=== PATIENT | female | born 1960 | race Two or more races ===

== ENCOUNTER 2024-01-13 20:23 | Emergency (ER) | payer MEDICAID, SELFPAY ==
[2024-01-13 20:24] VITALS: BMI 25.7
[2024-01-13 20:48] VITALS: BP 161/91; PULSE 88; RESP 18; TEMP 37; O2SAT 96
--- NOTE | 2024-01-13 20:57 | PD.EDRME ---
Rapid Medical Screening Exam RME Arrival date/time: 01/13/24 20:23 63 year old female present to ED for c/o flank pain/frequency I have greeted and performed a focused initial assessment of this patient. A comprehensive ED assessment and evaluation of the patient, analysis of all test results, and completion of the medical decision making process will be conducted by additional ED providers. Chief Complaint: Back Pain/Injury Time Seen by Provider: 01/13/24 20:46 Vital signs: Vital Signs Temperature 98.6 F 01/13/24 20:48 Pulse Rate 88 01/13/24 20:48 Respiratory Rate 18 01/13/24 20:48 Blood Pressure 161/91 H 01/13/24 20:48 Pulse Oximetry (%) 96 01/13/24 20:48 Oxygen Delivery Method Room Air 01/13/24 20:48
[2024-01-13 21:21] LABS: Collection Type, Urine Voided
[2024-01-13 21:38] LABS: Basophils % (Auto) 0 % (0-2.5); Eosinophils # (Auto) 0.1 Thou/mm3 (0.0-0.5); Eosinophils % (Auto) 1 % (0-10); Hematocrit 38.5 % (36.0-46.0); Immature Granulocytes % (Auto) 0 % (0-0); Immature Granulocytes Auto 0.02 Thou/mm3 (0.00-0.00); Lymphocytes # (Auto) 2.1 Thou/mm3 (1.0-4.8); Lymphocytes % (Auto) 30 % (10-50); Mean Corpuscular HGB Conc 33.8 g/dl (31.0-37.0); Mean Corpuscular Hemoglobin 30.2 pg (25.0-35.0); Mean Corpuscular Volume 90 fL (80-100); Monocytes # (Auto) 0.5 Thou/mm3 (0.0-0.8); Monocytes % (Auto) 7 % (0-12); Neutrophils # (Auto) 4.3 Thou/mm3 (1.8-7.7); Neutrophils % (Auto) 61 % (37-80); Nucleated Red Blood Cell % 0 /100 WBC (0); Platelet Count 201 Thou/mm3 (140-440); RDW Standard Deviation 41.9 fL (36.4-46.3)
[2024-01-13 21:42] LABS: Bilirubin,Urine Negative (Negative); Blood,Urine Negative (Negative); Clarity,Urine Clear (Clear/Hazy); Color,Urine Colorless (Lt Yel-Yel); Culture Indicated,Urine Not Indicated; Glucose, Urine Negative (Negative); Ketones,Urine Negative (Negative); Leukocyte Esterase,Urine Positive (Negative); Nitrite,Urine Negative (Negative); Protein,Urine Negative (Neg - Trace); RBC,Urine 2 /hpf (0-3); Specific Gravity,Urine 1.016 (1.001-1.035); Squamous Epithelial Cell,Urine < 1 /hpf (0-5); Urobilinogen,Urine Negative mg/dL (0.0-1.0); WBC,Urine 4 /hpf (0-5)
[2024-01-13 21:52] LABS: Alanine Aminotransferase 18 U/L (10-49); Albumin, Serum 4.7 gm/dL (3.4-4.8); Albumin/Globulin Ratio 1.6 (1.2-2.2); Alkaline Phosphatase 79 U/L (46-116); Anion Gap 8 (7-16); Aspartate Amino Transferase 16 U/L (0-34); BUN/Creatinine Ratio 21 Ratio (12-20); Bilirubin,Total 0.6 mg/dL (0.3-1.2); Blood Urea Nitrogen 21 mg/dL (9-23); Calcium 9.7 mg/dL (8.3-10.6); Calcium (Corrected) 9.7 mg/dL (8.5-10.1); Carbon Dioxide 24.9 mMol/L (20.0-31.0); Chloride 104 mMol/L (98-107); Estimated Creatinine Clearance 55.3 mL/min (>60); Glucose 99 mg/dL (74-106); Osmolality,Calculated 276 (275-295); Potassium 3.5 mMol/L (3.4-5.1); Sodium 137 mMol/L (136-145); Total Protein 7.7 gm/dL (5.7-8.2); eGFR > 60 See Note
[2024-01-13] MEDS: LIDOCAINE 5% 1 PATCH TOP (22:19)
[2024-01-13 22:25] VITALS: BP 163/79; PULSE 76; RESP 18; O2SAT 96
--- NOTE | 2024-01-13 22:25 | PC.NURSE ---
Patient refused Tordol injection. Provider aware.
--- NOTE | 2024-01-13 22:31 | EKG_ITS ---
[facility] Test Date: 2024-01-13 Pat Name: JUNIOR ROYAL Department: Room: - Gender: Female [employer] Manager: : 1960 Requested By: Beto Raines Order Number: [id number] Reading MD: Beto Raiens Measurements Intervals Dawson Rate: 61 P: 70 ME: 151 QRS: 46 QRSD: 87 T: 34 QT: 379 QTc: 383 Interpretive Statements SINUS RHYTHM No previous ECG available for comparison /store/S0/[id number].pdf
[2024-01-13 23:05] LABS: Troponin I < 0.002 ng/mL (0.0-0.045)
--- NOTE | 2024-01-13 23:44 | XR_ITS ---
Examination: PA lateral chest 2 views Technique: Upright PA lateral chest 2 views Exam date and time: January 13, 2024 1151 hrs. Indications: Onset chest pain today Findings: Normal heart size Moderate hyperexpansion No pneumonia or pulmonary edema Moderate osteopenia Impression: Moderate osteopenia No pneumonia or pulmonary edema
--- NOTE | 2024-01-14 01:36 | EDNOTE_ITS ---
<Statement entered by Naz Mckeon MD - 01/14/24 05:12> As co-signing physician, I was present and available for consult prn. I concur with the plan and care as documented by the midlevel provider. ED Back Injury Pain RME/HPI General Chief Complaint: Back Pain/Injury Stated Complaint: LEFT BACK PAIN Time Seen by Provider: 01/13/24 20:46 Arrival date/time: 01/13/24 20:23 63 year old female present to emergency room with c/o of flank/chest pain for 2 days. SEVERITY: Symptoms are described as being severe with limitations on activities of daily living CONTEXT: The patient is unable to identify any inciting events. DURATION/TIMING: The symptoms started approximately 2 days ASSOCIATED SYMPTOMS: The patient is unable to identify any other associated symptoms. MODIFYING FACTORS: flank, chest pain, frequency PERTINENT ROS: no fevers, chills, weight lost, no cough, no pleuritic pain, no ripping or tearing sensations, denies any lower extremity edema and no unilateral swelling, no chest pain/shortness of breath no nausea,vomiting, diarrhea, no dizziness/headache no rash no loc/syncope episode REVIEW OF SYSTEMS: See History of Present Illness - with the exception of those mentioned in the history of present illness, all other systems reviewed and reported as negative GENERAL: In general the patient is awake, interactive, in an emergency department gurney. HEAD/EYES/EARS/NOSE/THROAT: normo-cephalic, atraumatic, mucus membranes are moist, anicteric, palpebral conjunctiva is pink, trachea is midline. CARDIOVASCULAR: regular rate and regular rhythm, no murmurs, heart sounds are not distant, strong pulses in all four extremities that are equal and symmetric bilateral upper and lower extremities, normal capillary refill. CHEST/PULMONARY: normal chest rise and fall, good air movement, clear to auscultation bilaterally, normal inspiratory to expiratory ratios without evidence of respiratory distress. NECK: No midline/Paraspinal tenderness, no step off ROM/Strenght intact No Kernig and bruzinski sign. No trauma ABDOMEN: soft, not tender, no masses appreciated BACK: + left flank tenderness. normal range of motion without pain. NEUROLOGICAL: cranio-facial features are symmetric, moves all four extremities equally without obvious limitations or weakness. EXTREMITY: no tenderness to palpation over the long bones or large joints of the bilateral upper and lower extremities, no joint swelling, no joint erythema, no signs of trauma, no unilateral leg swelling and no peripheral edema. SKIN: warm, dry, well-perfused, no jaundice, no rash, no telangiectasias or petechia. PSYCH: calm, cooperative, no evidence of psychosis or agitation RME / HPI RME / HPI Narrative: 01/13/24 20:23 63 year old female present to ED for c/o flank pain/frequency I have greeted and performed a focused initial assessment of this patient. A comprehensive ED assessment and evaluation of the patient, analysis of all test results, and completion of the medical decision making process will be conducted by additional ED providers. Related Data Allergies Allergy/AdvReac Type Severity Reaction Status Date / Time No Known Allergies Allergy Verified 01/13/24 20:26 Course Course Course Narrative: Patient is admitted to the Emergency Department and evaluated. Patient appears well, is non-toxic and well hydrated. Patient appears to have an uncomplicated lumbar cervical strain. Pt. has no neurological deficits. No bowel or bladder dysfunction. Denies numbness in saddle region. Normal gait. No signs of cauda equina. Patient has no malignancy or other comorbidities. No signs of epidural abscess. No abdominal pain or pulsatile mass and has good peripheral pulses. I do not suspect AAA. Patient is given supportive home care instructions for rest, ice, use of NSAIDS, RX meds if indicated. Patient instructed to return to ER for any symptoms that are concerning to them. Quality Measures none Orders Category Date Time Status EKG (ED ONLY) *Do not use* NOW Care 01/13/24 22:31 Completed EKG (ED Only) Stat Exams 01/13/24 22:31 Draft XR chest 2V Stat Exams 01/13/24 23:44 Completed CBC Stat Lab 01/13/24 21:04 Completed CMP [Comprehensive Metabolic Panel] Stat Lab 01/13/24 21:04 Completed Troponin I Stat Lab 01/13/24 21:04 Completed UA, C/S IF [Urinalysis, C/S if Indicated] Stat Lab 01/13/24 21:15 Completed Urine Culture Stat Lab 01/13/24 21:15 Received Ketorolac Inj [Toradol Inj] Med 01/13/24 21:58 Discontinued 30 mg IM X1 ONE Lidocaine 5% Patch Med 01/13/24 21:58 Discontinued 1 patch TOP X1 ONE Reevaluation(s) Reevaluation #1: pt is feeling better, while having our discussion about labs, ekg and cxr. pt report getting TB result from her job, unsure if it was blood test but report was supposed to get Cxr to confirm. pt is a morning caregiver. provider report xray was normal. and she should get records and may bring to ER or pcp for a person to evaluate results. Vital Signs Vital signs: Vital Signs Temperature 98.6 F 01/13/24 20:48 Pulse Rate 88 01/13/24 20:48 Respiratory Rate 18 01/13/24 20:48 Blood Pressure 161/91 H 01/13/24 20:48 Pulse Oximetry (%) 96 01/13/24 20:48 Oxygen Delivery Method Room Air 01/13/24 20:48 Procedures -ED EKG Interpretation #1: Date of EK01/14/24 Rate: 61 Interpretation: Reviewed by me EKG Impression: Normal sinus rhythm, No acute ST-T changes, No ectopy, No ischemic changes, Normal QRS, Normal intervals and Normal axis Back Pain / Injury Patient data External records reviewed:: None Clinical information provided by:: patient Social determinants that could affect healthcare access:: none Patient has the following chronic illnesses:: none How is presenting disease/condition affected by chronic disease/condition?: no chronic disease Evaluation data The following diagnostics were reviewed and interpreted by me:: lab results, radiology exam(s) and EKG tracing(s) Lab and/or radiology exams considered but not ordered:: none Interpretation Summary: cbc/cmp/trop wnl urine no infection xray: Normal heart size Moderate hyperexpansion No pneumonia or pulmonary edema Moderate osteopenia Impression: Moderate osteopenia No pneumonia or pulmonary edema Medications / Prescriptions Medications or Prescriptions considered but not ordered:: none Medication administrations:: Medication Administration History Discontinued Medications Ketorolac Tromethamine (Ketorolac Inj 60 Mg/2 Ml Vial) 30 mg IM X1 ONE Stop: 01/13/24 21:59 Last Admin: 01/13/24 22:42 Dose: Not Given Documented By: Non-Admin Reason: Patient Refused Comments: does not want injection Lidocaine (Lidocaine 5% 1 Patch) 1 patch TOP X1 ONE Stop: 01/13/24 21:59 Last Admin: 01/13/24 22:19 Dose: 1 patch Documented By: none Consultations Consultation(s) initiated? (list below): No Diagnosis Differential diagnosis back pain/injury: lumbar radiculopathy, sciatica, strain of lumbar region, renal colic, pyelonephritis (anxiety ) and other (UTI, pna, mi/nstmei ) Most likely diagnosis given after review of the tests above:: flank/chest pain Admission Indicated Admission indicated?: not indicated Admission Request Was there a request for admission?: No Disposition Plan Disposition Plan: Discharge Discharge Attestation Discharge Attestation: The patient and all family members were given an opportunity to ask questions and understood the discharge instructions. Discharge instructions specifically effects, indications for sooner follow up or return to the emergency department, and the expected course of current diagnosis. Patient condition: Stable Discharge Plan Plan Patient Disposition: HOME (Self Care) Health Concerns: Follow with PMD as directed Take tylenol or motrin as need Return to ED if sx worsen Problem List Clinical Impression: Acute flank pain Patient/Caregiver Discharge Instructions Education Materials: ED Flank Pain, Uncertain Cause Print Language: Kiswahili Stand Alone Forms: [employer] Award Info., Patient Portal Info Letter
[2024-01-14 01:45] VITALS: RESP 18
== END 2024-01-14 01:45 | disposition home or self-care (01) ==
PROVIDERS: Physician Assistant; Emergency Provider Emergency Medicine
DX: R10.9 Unspecified abdominal pain (principal); R07.9 Chest pain, unspecified; M85.80 Other specified disorders of bone density and structure, unspecified site
CPT/HCPCS: 36415; 71046; 80053; 81001; 84484; 85025; 87077; 87086; 87186; 93005; 99283; J1885

== ENCOUNTER → 2024-01-15 | Outpatient (CLI) | payer MEDICAID, SELFPAY ==
--- NOTE | 2024-01-15 | XR_ITS ---
Examination: PA lateral chest 2 views TECHNIQUE: PA lateral chest 2 views Exam date and time: January 15, 2024 1300 hours Comparison January 13, 2024 INDICATIONS: Positive PPD skin test FINDINGS: Moderate hyperexpansion No pneumonia or pulmonary edema Moderate thoracic dextroscoliosis IMPRESSION: No active disease No radiographic findings of tuberculosis
== END | disposition home or self-care (01) ==
LOC: CDIM 11:58
PROVIDERS: Referring Provider Nurse Practitioner Family; Visit Provider Nurse Practitioner Family
DX: R76.11 Nonspecific reaction to tuberculin skin test without active tuberculosis (principal)
CPT/HCPCS: 71046